=== PATIENT | male | born 1955 | race Caucasian/White ===

== ENCOUNTER 2022-12-06 01:28 | Emergency (ER) | payer OTHER ==
[~2022-12-06] VITALS: Ht 170.2 cm; Wt 83.9 kg
--- NOTE | 2022-12-06 02:20 | NUR ---
CAME WITH IV VICK G20 ON LEFT HAND. BLOOD DRAWN AND SENT TO LAB
--- NOTE | 2022-12-06 02:27 | NUR ---
[id number] FROM HOME C/O ANXIETY ATTACK & SOB SINCE 1999. ADMITS TO "SMOKING 4 BOWLS OF WEED" PT A/OX4. TOLERATING R/A AT 97%. AMB WITH STEADY GAIT. SAFETY MEASURES IN PLACE.
--- NOTE | 2022-12-06 02:30 | NUR ---
SEEN BY DR BENSON AT BEDSIDE
--- NOTE | 2022-12-06 02:50 | NUR ---
COVID AND INFLUENZA SWAB DONE AND SENT TO LAB
--- NOTE | 2022-12-06 02:51 | NUR ---
BLOOD COLLECTED AND SENT TO LAB
--- NOTE | 2022-12-06 02:51 | NUR ---
EMT AT PT'S BEDSIDE FOR EKG
[2022-12-06 02:58] LABS: BASOPHILS % (AUTO) 0.3 % (0.0-2.0); EOSINOPHILS % (AUTO) 3.2 % (0.0-6.0); HEMATOCRIT 43 % (39-51); HEMOGLOBIN 14.6 g/dL (13.5-17.5); LYMPHOCYTES # (AUTO) 1.9 K/uL (0.8-4.8); LYMPHOCYTES % (AUTO) 13.3 % (20.0-44.0); MEAN CORPUSCULAR HGB CONC 34 g/dl (31.0-36.0); MEAN CORPUSCULAR VOLUME 93 fL (80-96); MONOCYTES # (AUTO) 1.1 K/uL (0.1-1.30); MONOCYTES % (AUTO) 7.7 % (2.0-12.0); NEUTROPHILS % (AUTO) 75.5 % (43.0-81.0); PLATELET COUNT (AUTO) 356 K/uL (150-450); RED BLOOD CELL COUNT(AUTO) 4.62 MIL/uL (4.5-6.0); WHITE BLOOD COUNT (AUTO) 14.5 K/uL (4.3-11.0)
[2022-12-06] MEDS ORDERED: ALBUTEROL FS 2.5 MG/0.5 ML VIAL.NEB NEB ONE (03:00)
--- NOTE | 2022-12-06 03:02 | NUR ---
CAREER SERVICES OFFICER AT BEDSIDE
[2022-12-06] MEDS ORDERED: ALBUTEROL FS 2.5 MG/0.5 ML VIAL.NEB ONE (03:08)
--- NOTE | 2022-12-06 03:12 | NUR ---
RT AT PT'S BEDSIDE FOR BREATHING TX
[2022-12-06 03:18] LABS: CALCIUM, SERUM 9.3 mg/dL (8.5-10.1); CARBON DIOXIDE 26 mmol/L (21-32); CHLORIDE 102 mmol/L (98-107); CREATININE 0.8 mg/dL (0.6-1.3); GLUCOSE 141 mg/dL (74-106); POTASSIUM 3.8 mmol/L (3.5-5.1); SODIUM SERUM 138 mmol/L (136-145); UREA NITROGEN, BLOOD 11 mg/dL (7-18)
[2022-12-06 03:32] LABS: ALANINE AMINOTRANSFERASE 26 U/L (12-78); ALBUMIN 4.3 g/dL (3.4-5.0); ALKALINE PHOSPHATASE 97 U/L (46-116); ASPARTATE AMINOTRANSFERASE 19 U/L (15-37); BILIRUBIN,DIRECT 0.1 mg/dL (0.0-0.2); BILIRUBIN,TOTAL 0.7 mg/dL (0.2-1.0); TOTAL PROTEIN, SERUM 8.2 g/dL (6.4-8.2)
--- NOTE | 2022-12-06 04:47 | NUR ---
[employer] CONSULTANT AT PT'S BEDSIDE
[2022-12-06] MEDS ORDERED: ACETAMINOPHEN 325 MG TABLET ONE (05:45)
[2022-12-06] MEDS ORDERED: ACETAMINOPHEN 325 MG TABLET PO ONE (06:00)
--- NOTE | 2022-12-06 06:05 | NUR ---
Patient discharged to home in stable condition. Written and verbal after care instructions given. Patient verbalizes understanding of instruction.
--- NOTE | 2022-12-06 06:05 | NUR ---
IV VICK REMOVED
[2022-12-06 06:06] VITALS: BP 142/78
== END 2022-12-06 06:07 | disposition home or self-care (01) ==
LOC: ER 01:37
DX: F41.9 Anxiety disorder, unspecified (principal); R05.9 Cough, unspecified; I10 Essential (primary) hypertension; F17.200 Nicotine dependence, unspecified, uncomplicated; Z20.822 Contact with and (suspected) exposure to COVID-19; Z60.2 Problems related to living alone
CPT/HCPCS: 99285; 71045; 87426; 93005; 87804 ×2; 85025; 80048; 80076; 36415; 84484 ×2; 85730; 83880; 94640; C9803